=== PATIENT | male | born 1955 | race Caucasian/White ===

== ENCOUNTER 2019-09-06 17:43 | Observation (INO) ==
[2019-09-06] MEDS ORDERED: ONDANSETRON 4 MG/2 ML VIAL IV STA (18:21)
[2019-09-06 18:26] LABS: Basophils % 0.4 % (0.0-0.8); Hematocrit 45.5 VOL% (42.0-52.0); Hemoglobin 16.1 GM/DL (14.0-18.0); Immature Granulocytes % 0.4 %; Immature Granulocytes Absolute 0.02 #; Lymphocytes # 0.5 10*3/uL (1.4-4.0); Lymphocytes % 9.9 % (21.2-54.2); Mean Corpuscular HGB Conc 35.4 GM/DL (32-36); Mean Corpuscular Volume 98.9 FL (87-102); Mean Platelet Volume 9.9 FL (9.6-12.0); Monocytes % 15.8 % (1.7-12.7); Neutrophils % 73.5 % (38.7-73.9); Platelet Count 107 T/CUMM (130-400); Red Cell Distribution Width 13.4 % (9.3-17.3); White Blood Count 5.5 T/CUMM (4-12)
[2019-09-06 18:34] LABS: PT Patient Result 10.7 SECS (9.6-12.2)
[2019-09-06 18:47] LABS: Band Neutrophils 3 % (0-10); Lymphocytes 7 % (20-55); Platelet Estimate Adequate; Segmented Neutrophils 79 % (50-85); Total Cells Counted 100
[2019-09-06 18:53] LABS: Albumin 3.9 G/DL (3.4-5.0); Calcium 8.7 MG/DL (8.5-10.1); Osmolality,Calculated 262.7 MOS/KG (273-304); Total Protein 7.2 G/DL (6.4-8.3)
[2019-09-06] MEDS ORDERED: POTASSIUM CHLORIDE 20 MEQ/15 ML UDCUP PO ONE (19:08)
[2019-09-06] MEDS ORDERED: LORazepam 2 MG/1 ML VIAL IV PRN (22:56)
[2019-09-06] MEDS ORDERED: NICOTINE 21 MG/24 HR PATCH TRANSDERM PRN (22:57)
[2019-09-07] MEDS: SODIUM CHLORIDE 0.9% 1,000 ML IV SCH ×3 (00:20→19:24)
[2019-09-07] MEDS ORDERED: ACETAMINOPHEN 325 MG TABLET PO PRN (04:21)
[2019-09-07 05:47] LABS: Basophils % 0.2 % (0.0-0.8); Hematocrit 41.8 VOL% (42.0-52.0); Hemoglobin 14.8 GM/DL (14.0-18.0); Immature Granulocytes % 0.5 %; Immature Granulocytes Absolute 0.02 #; Lymphocytes # 0.7 10*3/uL (1.4-4.0); Lymphocytes % 16.6 % (21.2-54.2); Mean Corpuscular HGB Conc 35.4 GM/DL (32-36); Mean Corpuscular Volume 99.8 FL (87-102); Monocytes % 14.5 % (1.7-12.7); Neutrophils % 68.2 % (38.7-73.9); Red Blood Count 4.19 MC/CUMM (3.8-5.5); Red Cell Distribution Width 13.5 % (9.3-17.3); White Blood Count 4.4 T/CUMM (4-12)
[2019-09-07 05:54] LABS: Platelet Count 90 T/CUMM (130-400)
[2019-09-07 06:01] LABS: Apearance,Urine CLEAR (Clear); Bilirubin,Urine Negative (Negative); Blood, Urine Moderate mg/dL (Negative); Glucose,Urine (UA) Negative (Negative); Ketones,Urine 5 mg/dL (Negative); Mucus,Urine Occasional /LPF (Occasional); Nitrite,Urine Negative (Negative); Protein,Urine 30 MG/DL; RBC,Urine 4 /HPF (0-4); Urine Color Yellow (Yellow); Urine Urobilinogen < 2.0 EU/DL (0.2-1.0); WBC,Urine <1 /HPF (0-6)
[2019-09-07 06:07] LABS: Hypochromasia 1+; Platelet Estimate Decreased
[2019-09-07 06:11] LABS: Albumin 3.3 G/DL (3.4-5.0); Bilirubin,Total 1.6 MG/DL (0.2-1.0); Calcium 8.5 MG/DL (8.5-10.1); Osmolality,Calculated 269.2 MOS/KG (273-304); Total Protein 6.3 G/DL (6.4-8.3)
[2019-09-07] MEDS: FOLIC ACID 1 MG TABLET PO SCH (09:38)
[2019-09-07] MEDS: MULTIVITAMIN (CENTRUM) TABLET PO SCH (09:38)
[2019-09-07] MEDS: POTASSIUM CHLORIDE 20 MEQ TABLET PO PRN ×2 (09:39→17:17)
[2019-09-07] MEDS: ENOXAPARIN 40 MG/0.4 ML SYRINGE SUBCUT SCH (09:39)
[2019-09-07] MEDS ORDERED: POTASSIUM CHLORIDE 20 MEQ/15 ML UDCUP PO ONE (10:00)
[2019-09-07] MEDS ORDERED: MAGNESIUM SULF RIDER 2 GM in PREMIX 1 EACH IV ONE (10:00)
[2019-09-07] MEDS ORDERED: LOPERAMIDE 2 MG CAPSULE PO PRN (10:50)
[2019-09-07] MEDS ORDERED: LOPERAMIDE 2 MG CAPSULE PO ONE (11:30)
[2019-09-07] MEDS: ASPIRIN CHEW 81 MG TABLET PO SCH (12:14)
[2019-09-07] MEDS: THIAMINE 100 MG TABLET PO SCH (12:14)
[2019-09-07 12:35] LABS: Barbiturates Screen,Urine Negative (Negative); Benzodiazepines Screen,Urine Negative (Negative); Cannabinoid Screen,Urine Positive (Negative); Opiate Screen,Urine Negative (Negative); Phencyclidine Screen,Urine Negative (Negative)
[2019-09-07] MEDS: carvediloL 3.125 MG TABLET PO SCH (17:16)
[2019-09-07] MEDS ORDERED: ATORVASTATIN 40 MG TABLET PO SCH (21:00)
[2019-09-08] MEDS: SODIUM CHLORIDE 0.9% 1,000 ML IV SCH (02:27)
[2019-09-08 05:09] LABS: Basophils % 0.2 % (0.0-0.8); Eosinophils % 0.2 % (0.00-10.9); Hematocrit 39.7 VOL% (42.0-52.0); Hemoglobin 13.8 GM/DL (14.0-18.0); Immature Granulocytes % 0.2 %; Immature Granulocytes Absolute 0.01 #; Lymphocytes # 1.1 10*3/uL (1.4-4.0); Lymphocytes % 23.2 % (21.2-54.2); Mean Corpuscular HGB Conc 34.8 GM/DL (32-36); Mean Corpuscular Volume 101.3 FL (87-102); Mean Platelet Volume 10.7 FL (9.6-12.0); Monocytes % 12.8 % (1.7-12.7); Neutrophils % 63.4 % (38.7-73.9); Platelet Count 75 T/CUMM (130-400); Red Blood Count 3.92 MC/CUMM (3.8-5.5); Red Cell Distribution Width 13.7 % (9.3-17.3); White Blood Count 4.9 T/CUMM (4-12)
[2019-09-08 05:31] LABS: Hypochromasia 1+; Platelet Estimate Decreased
[2019-09-08 05:36] LABS: Calcium 7.9 MG/DL (8.5-10.1); Osmolality,Calculated 264.2 MOS/KG (273-304)
[2019-09-08 05:42] LABS: Risk Ratio 3.03; VLDL CHOLESTEROL 17.8 MG/DL
[2019-09-08] MEDS ORDERED: PANTOPRAZOLE 40 MG TABLET PO SCH (09:00)
[2019-09-08] MEDS: THIAMINE 100 MG TABLET PO SCH (09:16)
[2019-09-08] MEDS: FOLIC ACID 1 MG TABLET PO SCH (09:16)
[2019-09-08] MEDS: ENOXAPARIN 40 MG/0.4 ML SYRINGE SUBCUT SCH (09:16)
[2019-09-08] MEDS: MULTIVITAMIN (CENTRUM) TABLET PO SCH (09:16)
[2019-09-08] MEDS: ASPIRIN CHEW 81 MG TABLET PO SCH (09:16)
[2019-09-08] MEDS: carvediloL 3.125 MG TABLET PO SCH (09:16)
[2019-09-08 11:58] VITALS: BP 113/59
== END 2019-09-08 13:50 | disposition home or self-care (01) ==
LOC: N.EDINP 17:43 → N.ED 17:43 → N.2E 23:49
PROVIDERS: ADMIT Internal Medicine; ATTEND Internal Medicine